=== PATIENT | male | born 1940 | race Two or more races ===

== ENCOUNTER 2017-02-12 10:23 | Day surgery (SDC) | payer OTHER, MEDICAID ==
[2017-02-12] MEDS ORDERED: DIPRIVAN VIAL ONE (10:40)
[2017-02-12] MEDS ORDERED: TETRACAINE 0.5% OPHTH 1 DOSE AFFEYE ONE ×2 (11:23→14:30)
[2017-02-12] MEDS ORDERED: VIGAMOX 0.5% OPHTH 1 DOSE AFFEYE ONE ×5 (11:25→15:13)
[2017-02-12] MEDS ORDERED: NS 500 ML IV 500 ML IV ONE (11:31)
[2017-02-12] MEDS ORDERED: PROLENSA OPHTH 1 DOSE AFFEYE ONE (11:37)
[2017-02-12] MEDS ORDERED: ALPHAGAN-P OPHTH 1 DOSE AFFEYE ONE (11:38)
[2017-02-12] MEDS ORDERED: CYCLOGYL 1% OPHTH 1 DOSE OP ONE ×3 (11:40→11:50)
[2017-02-12] MEDS ORDERED: MYDRIACIL OPHTH 1 DOSE AFFEYE ONE ×3 (11:40→11:50)
[2017-02-12] MEDS ORDERED: AK-DILATE 2.5% OPHTH 1 DOSE OP ONE ×3 (11:40→11:50)
[2017-02-12] MEDS ORDERED: BETADINE OPHTH SOLN 5% EACHEYE ONE (14:30)
[2017-02-12] MEDS ORDERED: ADRENALINE CHL INJ IJ ONE ×2 (14:37→15:00)
[2017-02-12] MEDS ORDERED: DUOVISC IO ONE ×2 (14:37→15:00)
[2017-02-12] MEDS ORDERED: XYLOCAINE-MPF 1% IJ ONE ×2 (14:37→15:00)
[2017-02-12] MEDS ORDERED: BSS OPHTH (PLAIN) 500 ML with VANCOMYCIN HCL 500 MG VIAL 25 MG, ADRENALINE CHL INJ 1 MG IR ONE ×6 (14:38)
[2017-02-12 15:38] VITALS: BP 153/88
== END 2017-02-12 15:40 | disposition home or self-care (01) ==
LOC: SURG1 10:23
PROVIDERS: ATTEND Ophthalmology
PROC: 08DK3ZZ Extraction of Left Lens, Percutaneous Approach (ICD-10-PCS; principal; 2017-02-12 20:15)
PROC: 08RK3JZ Replacement of Left Lens with Synthetic Substitute, Percutaneous Approach (ICD-10-PCS; principal; 2017-02-12 20:15)
DX: H25.12 Age-related nuclear cataract, left eye (principal); H25.012 Cortical age-related cataract, left eye
CPT/HCPCS: A4217; J0170; J3370; J3490

== ENCOUNTER 2017-03-05 08:20 | Day surgery (SDC) | payer OTHER, MEDICAID ==
[~2017-03-05 08:20] MED LIST: TETRACAINE 0.5% OPHTH 1 DOSE AFFEYE ONE
[2017-03-05] MEDS ORDERED: VIGAMOX 0.5% OPHTH 1 DOSE AFFEYE ONE ×5 (08:21→11:44)
[2017-03-05] MEDS ORDERED: PROLENSA OPHTH 1 DOSE AFFEYE ONE ×2 (08:32→08:34)
[2017-03-05] MEDS ORDERED: ALPHAGAN-P OPHTH 1 DOSE AFFEYE ONE ×2 (08:33→08:35)
[2017-03-05] MEDS ORDERED: NS 500 ML IV 500 ML IV ONE (08:34)
[2017-03-05] MEDS ORDERED: MYDRIACIL OPHTH 1 DOSE AFFEYE ONE ×6 (08:36→08:41)
[2017-03-05] MEDS ORDERED: CYCLOGYL 1% OPHTH 1 DOSE OP ONE ×6 (08:36→08:41)
[2017-03-05] MEDS ORDERED: AK-DILATE 2.5% OPHTH 1 DOSE OP ONE ×6 (08:36→08:41)
[2017-03-05] MEDS ORDERED: DIPRIVAN VIAL ONE (09:39)
[2017-03-05] MEDS ORDERED: BETADINE OPHTH SOLN 5% EACHEYE ONE (11:08)
[2017-03-05] MEDS ORDERED: TETRACAINE 0.5% OPHTH 1 DOSE AFFEYE ONE ×2 (11:08→11:17)
[2017-03-05] MEDS ORDERED: XYLOCAINE-MPF 1% IJ ONE (11:17)
[2017-03-05] MEDS ORDERED: BSS OPHTH (PLAIN) 500 ML with VANCOMYCIN HCL 500 MG VIAL 25 MG, ADRENALINE CHL INJ 1 MG IR ONE ×3 (11:17)
[2017-03-05] MEDS ORDERED: DUOVISC IO ONE (11:17)
[2017-03-05] MEDS ORDERED: ADRENALINE CHL INJ IJ ONE (11:17)
[2017-03-05 13:15] VITALS: BP 146/72
== END 2017-03-05 12:10 | disposition home or self-care (01) | DRG 115 ==
LOC: SURG1 08:20
PROVIDERS: ATTEND Ophthalmology
PROC: 08RJ3JZ Replacement of Right Lens with Synthetic Substitute, Percutaneous Approach (ICD-10-PCS; principal; 2017-03-05 14:15)
PROC: 08BSXZX Excision of Right Conjunctiva, External Approach, Diagnostic (ICD-10-PCS; principal; 2017-03-05 14:15)
PROC: 08DJ3ZZ Extraction of Right Lens, Percutaneous Approach (ICD-10-PCS; principal; 2017-03-05 14:15)
PROC: 08U007Z Supplement of Right Eye with Autologous Tissue Substitute, Open Approach (ICD-10-PCS; principal; 2017-03-05 14:15)
DX: H25.11 Age-related nuclear cataract, right eye (principal); H25.011 Cortical age-related cataract, right eye; H11.001 Unspecified pterygium of right eye
CPT/HCPCS: 99100; A4217; J0170; J3370; J3490